=== PATIENT | female | born 1975 | race Hispanic/Latino ===

== ENCOUNTER 2018-01-28 15:34 | Emergency (ER) | payer OTHER, SELFPAY ==
[~2018-01-28 15:34] MED LIST: Iopamidol 370 76% 100 ML VIAL ONE; Sodium Chloride 0.9% 1,000 ML BAG ONE; Sodium Chloride 0.9% 100 ML BAG ONE
[2018-01-28 16:27] LABS: Bilirubin Negative (Negative); Blood, Urine Moderate (Negative); Glucose, Urine (Dipstick) Negative (Negative); Leukocyte Trace (Negative); Nitrite Negative (Negative); Protein, Urine (Dipstick) 30 mg/dL (Neg-Trace); Urobilinogen 0.2 mg/dL (0.2-1.0); pH, Urine 7.5 (5.0-9.0)
[2018-01-28 16:30] LABS: Pregnancy Test - Urine (BHCG) Negative (Negative); Pregu Control Background? CLEAR/WHITE (CLR/WHITE); Pregu Control Bar Appear? YES (CONTROL BAR)
[2018-01-28 16:31] LABS: Clarity Hazy (Clear)
[2018-01-28 16:39] LABS: #Lymphocytes 0.3 thou/uL (1.20-3.40); #Neutrophils 6.9 thou/uL (1.40-6.50); %Basophils 0.3 % (0.0-1.0); %Eosinophils 0.1 % (0.0-10.0); %Lymphocytes 4.2 % (21.0-51.0); %Monocytes 0.5 % (0.0-10.0); Anisocytosis SLIGHT = 6-15 cells (100X) (0-5/hpf); MDiff Complete? YES; Mean Corpuscular HGB CONC 31.3 g/dL (32.0-36.0); Mean Corpuscular Hemoglobin 24.7 pg (27.0-31.0); Mean Corpuscular Volume 79.1 fl (81.0-99.0); Mean Platelet Volume 8.4 fL (7.4-10.4); PLT Morphology Comment Appears Adequate; Platelet Count 251 thou/uL (130-400); RBC Distribution Width 17.3 % (11.5-14.5); Red Blood Cell (RBC) Count 3.65 mill/uL (4.20-5.40); White Blood Cell (WBC) Count 7.3 thou/uL (4.8-10.8)
[2018-01-28] MEDS ORDERED: Ondansetron HCl/PF 4 MG/2 ML Vial ONE (16:42)
[2018-01-28] MEDS ORDERED: Ketorolac Tromethamine 30 MG/ML VIAL ONE (16:42)
[2018-01-28 16:43] LABS: Bacteria/HPF 2+ HPF (None Seen); WBC/HPF 0-3 HPF (0-3)
[2018-01-28 16:52] LABS: ALT (SGPT) 18 U/L (8-55); AST (SGOT) 16 U/L (5-34); Albumin 4.2 g/dL (3.5-5.0); Alkaline Phosphatase 73 U/L (40-150); Anion Gap 15 mmol/L (10-20); BUN (Urea Nitrogen) 9 mg/dL (7.0-18.7); Bilirubin, Total 0.8 mg/dL (0.2-1.2); Calc. Creatinine Clearance 0 mL/min (70-130); Calcium 8.8 mg/dL (7.8-10.44); Carbon Dioxide 22 mmol/L (22-29); Chloride 101 mmol/L (98-107); Estimated GFR-MDRD Greater than 90; Globulin 3.2 g/dL (2.4-3.5); Glucose 102 mg/dL (70-105); Lipase 10 U/L (8-78); Potassium 3.4 mmol/L (3.5-5.1); Protein, Total 7.4 g/dL (6.0-8.3); Sodium 135 mmol/L (136-145)
[2018-01-28] MEDS ORDERED: Potassium Chloride 20 MEQ TAB ONE ×2 (18:01)
--- NOTE | 2018-01-28 19:40 | CT ---
CT OF ABDOMEN AND PELVIS 01/28/18 COMPARISON: None. HISTORY: Epigastric pain, abdominal pain, nausea and vomiting. TECHNIQUE: Serial axial CT imaging at 5 mm intervals from lung bases through pubic symphysis with IV and oral co ntrast. Coronal reformatted imaging obtained. FINDINGS: The imaged lung bases appear unremarkable. No free intraperitoneal air is seen. The liver, spleen, pancreas, and adrenal glands are grossly unremarkable. The kidneys demonstrate no evidence for obstruction on either side. Round low density lesion in left hemipelvis noted, likely on the basis of left ovarian cyst, measurin g 1.4 cm. Similar low density lesion seen in right hemipelvis, likely on the basis of right ovarian c yst, measuring 2.2 cm. There is no evidence for bowel obstruction. The appendix is irregular, thick walled and dilated, with thickening of the cecal apex, evidence of a cute appendicitis. The appendix measures 9-10 mm in AP dimension. The appendix lies anterior to the p soas muscle within the right lower quadrant emanating medially from the tip of the cecum, best seen o n axial image 59. There is no lymphadenopathy seen in the abdomen or pelvis. No acute osseous abnormality. IMPRESSION: Evidence of acute appendicitis. Results called to Dr. Elizabeth, 7:14 p.m., 01/28/18. Code CR POS: [id number]
[2018-01-28] MEDS ORDERED: Piperacillin/Tazobactam 3.375 GM VIAL ONE (20:08)
== END 2018-01-28 20:17 | disposition short-term general hospital (02) ==
LOC: MADERS 15:34
DX: K35.80 Unspecified acute appendicitis (principal); D64.9 Anemia, unspecified; E86.9 Volume depletion, unspecified
CPT/HCPCS: 36415; 74177; 80053; 81003; 81015; 81025; 83690; 85025; 96361; 96374; 96375; J1885; J2405; J2543; J7050